=== PATIENT | male | born 1935 | race Caucasian/White ===

== ENCOUNTER 2018-06-20 11:00 | Outpatient (RCR) ==
--- NOTE | 2018-06-14 15:05 | RS.OPPTEV2 ---
Date of Note: 06/14/18 Visit #: 1 Number of visits approved by Insurance: n/a Date of Evaluation: 06/14/18 Payer Source: MEDICARE Date of Onset/Injury/Change in Status: 05/12/18 Surgery Performed?: No Treatment Diagnosis: Low Back Pain History of Condition/Mechanism of Injury:: pt reports that 3-4 wks ago he lifted a heavy box and hurt his back. Reports MD has given him a steroid shot, steroid pack as well as gabapentin. pt states steroid shot helped for 2-3 days, and he couldn't tolerate the gabapentin it made him sleepy. Prior Level of Function.....Patient was independent with: ADL's, Self Care, Ambulation/Mobility, Community Integration/Access Functional Limitations: Standing, Bending, Ambulation, Community Access/ Integration Current Subjective/complaints:: pt reports he is having radiating, burning, sharp pain in RLE. Reports that he tried ice earlier and it did not seem to help. Treatment Side (optional): Right *Precautions: n/a Medical History Medical History: Hypertension, Arthritis Surgical History: CABG Surgical History Comments:: L knee surgery, Smoking Status: Current some day smoker Hx Home Medications: aspirin, coenzyme Q10, eliquis, enalapril, furosemide, metoprolol tartrate, rosuvastatin, triamterene-hydrochlorothiazide, Patient's Goals: decrease pain in low back Pain Assessment - Pain Description Pain Location: R lumbosacral area radiating into RLE Pain Description: Burning, Sharp, Aching Current Pain Intensity: 6 Worst Pain Intensity: 9 Functional Outcome Measure Oswestry LBP: 30 - G Codes & Severity Modifier G Codes & Modifier: n/a Source of G Code score: n/a Observation - Observation Inspection: pt with hamstring tightness, piriformis tightness L worse than R. Posture: Forward Head, Rounded Shoulders, Increased Thoracic Kyphosis, Decreased Lumbar Lordosis Handedness: Right Gait - Gait Pattern Gait Comments: pt amb with flexed posture General Range of Motion: BUE WFL's. BLE WFL's Muscle Strength: BUE 5/5. LLE 5/5. RLE hip flex 4+/5 with pain, knee flex/ext 4+/5, ankle DF/PF 5/5 - ROM Lumbar Flexion: Hand reach to patellae Sidebending to Left: Reach to Lateral Joint Line Sidebending to Right: Reach to Lateral Joint Line Lumbar Spine ROM Limitations: Soft Tissue Tightness, Muscle Weakness, Pain - Strength Trunk Extension: 4 Good Trunk Flexion: 3- Fair- Trunk Lateral Flexion: 3 Fair - Special Tests MIGUEL Test: Negative Left, Negative Right SLR Test: Positive Right Palpation Palpation Findings: Tenderness, Muscle Guarding Comments:: tenderness noted at R SI joint, muscle guarding on the R lumbosacral area Sensation - Sensation Right Upper Extremity: Intact/Normal Left Upper Extremity: Intact/Normal Right Lower Extremity: Impaired Left Lower Extremity: Intact/Normal Sensation Description: (n/t and burning/pain into RLE post thigh and ant barrera) Balance - Sitting Balance Static Sitting Balance: Normal Dynamic Sitting Balance: Normal - Standing Balance Static Standing Balance: Normal Dynamic Standing Balance: Normal - Treatment Modality: Electrical Stim Unattended Parameters/Method Applied: IFC x 20 mins at 12ma Treatment Area: R lumbosacral area Patient Position: Left Sidelying - Heat/Cryotherapy Treatment: Hot Pack Comments:: lumbosacral area Interventions - Exercise/Activities/Manual Therapy Exercises/Activities: pt performed BLE hamstring stretches, piriformis stretches , prone lying Manual Therapy: n/a HOME EXERCISE PROGRAM: pt given written HEP to include prone lying, standing lumbar ext, hamstring stretch, piriformis stretch - Charges Timed Code Treatment Minutes: 48 Total Treatment Time: 61 Procedures billed for this date of service:: eval low, estim, HP EVALUATION COMPLEXITY LEVEL EVALUATION COMPLEXITY LEVEL: HISTORY: Low (OA, HTN, LBP), EXAM OF BODY SYSTEMS: Medium, CLINICAL PRESENTATION: Low, CLINICAL DECISION MAKING: Low Assessment Assessment: pt presents with LBP radiating into RLE. pt with decreased strength , as well as muscle tightness B hamstring and piriformis L worse than R. Feel pt would benefit from skilled PT for therex for strengthening, stretching as well as modalities to decrease pain and inflammation. Patient Education: Home Exercise Program, Education of Plan of Care Rehab Potential: Good Short Term Goals Goal #1: pt independent with initial HEP Goal to be met by: 06/28/18 Goal #2: Rate pain <6/10 with activity Goal to be met by: 06/28/18 Goal #3: Improve flexibility L hamstring and piriformis equal to R Goal to be met by: 06/28/18 Goal #4: pt report radiating pain is no longer constant. Goal to be met by: 06/28/18 Larry Operator Goals Goal #1: Report increased ability to return to normal daily activities w less pain Goal to be met by: 07/12/18 Goal #2: Improve B LE hamstring and piriformis flexibility Goal to be met by: 07/12/18 Goal #3: pt with no reports of radicular pain in RLE Goal to be met by: 07/12/18 Plan - Treatment to be Provided Procedures: Therapeutic Exercises, Therapeutic Activity, Manual Therapy, Massage , Patient Education Modalities: Electrical Stimulation, Ultrasound/Phonophoresis, Cryotherapy, Hot Packs - Treatment Plan Frequency: 2 X week Duration: 4 weeks Dates of Larry Operator Goals: 07/12/18 Expiration date of current Insurance Approval:: n/a - Treatment Code (1) Low back pain Code(s): M54.5 - LOW BACK PAIN Qualifiers: Chronicity: chronic Back pain laterality: right Sciatica presence: with sciatica Sciatica laterality: sciatica of right side Qualified Code(s): M54.41 - Lumbago with sciatica, right side; G89.29 - Other chronic pain (2) Muscle tightness Code(s): M62.89 - OTHER SPECIFIED DISORDERS OF MUSCLE (3) Low back pain radiating to right lower extremity Code(s): M54.5 - LOW BACK PAIN
--- NOTE | 2018-06-17 08:15 | RS.CXNS ---
Date of scheduled appointment: 06/17/18 Type: Cancel Reason for Cancel/NS: Called ,cancelled due to in the family.
--- NOTE | 2018-06-24 10:55 | RS.OPPTDN ---
Subjective Date of Note: 06/20/18 Visit #: 2 Number of visits approved by Insurance: NA Date of Evaluation: 06/14/18 Payer Source: MEDICARE Treatment Diagnosis: Low Back Pain Current Subjective/complaints:: Patient reports the back feels about the same as the last visit ( eval.) *Precautions: n/a Pain Assessment - Pain Description Pain Location: lumbar / R hip Pain Description: Radiating, Dull, Aching Current Pain Intensity: 6/10 - Treatment Modality: Electrical Stim Unattended Parameters/Method Applied: 20 mins. IFC @ 14-15 ma to lumbar Patient Position: Left Sidelying - Heat/Cryotherapy Treatment: Hot Pack (concurrent with e-stim) Interventions - Exercise/Activities/Manual Therapy Exercises/Activities: pt performed pelvic tilts,SKTC ,DKTC ,hamstring stretches, piriformis stretches Total minutes of Exercise: 20 Manual Therapy: n/a Total minutes of Manual Therapy: 0 HOME EXERCISE PROGRAM: pt given written HEP to include prone lying, standing lumbar ext, hamstring stretch, piriformis stretch - Charges Timed Code Treatment Minutes: 20 Total Treatment Time: 40 Procedures billed for this date of service:: hp,e-stim,ex 1 Assessment: Patient has moderate tightness in the R hip and also bilateral hamstrings.He is guarded with re-positionind himself from side-lying to supine.We discussed to also continue prone position if it gives relief.He reports slight decrease after session today. Patient Education: Education of diagnosis, Body/Joint mechanics, Home Exercise Program, Home Safety, Activity Modification, Education of Plan of Care Patient demonstrates compliance with HEP?: Yes Short Term Goals Goal #1: pt independent with initial HEP Goal to be met by: 06/28/18 Progress towards Goal:: Progressing Goal #2: Rate pain <6/10 with activity Goal to be met by: 06/28/18 Goal #3: Improve flexibility L hamstring and piriformis equal to R Goal to be met by: 06/28/18 Goal #4: pt report radiating pain is no longer constant. Goal to be met by: 06/28/18 Senior Care Goals Goal #1: Report increased ability to return to normal daily activities w less pain Goal to be met by: 07/12/18 Goal #2: Improve B LE hamstring and piriformis flexibility Goal to be met by: 07/12/18 Goal #3: pt with no reports of radicular pain in RLE Goal to be met by: 07/12/18 Plan Dates of Senior Care Goals: 07/12/18 Expiration date of current Insurance Approval:: NA PLAN: Cont skilled PT to reduce/eliminate lumbar and sciatic pain.
== END 2018-06-20 23:59 ==
DX: M54.5 Low back pain (principal)

== ENCOUNTER 2018-07-12 14:00 | Outpatient (RCR) ==
--- NOTE | 2018-06-25 15:39 | RS.OPPTDN ---
Subjective Date of Note: 06/25/18 Visit #: 3 Number of visits approved by Insurance: NA Date of Evaluation: 06/14/18 Payer Source: MEDICARE Treatment Diagnosis: Low Back Pain Current Subjective/complaints:: Patient reports the pain is a litle less ,as compared to last week. *Precautions: n/a Pain Assessment - Pain Description Current Pain Intensity: 3-4 /10 Other Comments regarding Pain:: He reports the morning pain is worse ,feels better as he is up moving more as the day progresses. - Treatment Modality: Electrical Stim Unattended Parameters/Method Applied: 20 mins. IFC to lumbar,@ 15 ma. Patient Position: Left Sidelying - Heat/Cryotherapy Treatment: Hot Pack (concurrent with e-stim) Interventions - Exercise/Activities/Manual Therapy Exercises/Activities: 35 mins. of SKTC ,DKTC,90/90 hams. stretches,LTR,in hooklying.R piriformis stretches.SI muscle energy of resisted L hip ext/R hip flexion. Total minutes of Exercise: 35 Manual Therapy: n/a Total minutes of Manual Therapy: 0 HOME EXERCISE PROGRAM: pt given written HEP to include prone lying, standing lumbar ext, hamstring stretch, piriformis stretch - Charges Timed Code Treatment Minutes: 35 Total Treatment Time: 55 Procedures billed for this date of service:: hp,e-stim,ex 2 Assessment: Progressing ,reports relief from the R sciatica after piriformis stretches,but the general pain returns with initial standing.He has better standing posture after PT session.The muscle energy dereases the leg length discrepancy.He initially presented with the R LE shorter than L when supine .He is attentive and motivated to improve. Patient Education: Education of diagnosis, Body/Joint mechanics, Home Exercise Program, Home Safety, Activity Modification, Education of Plan of Care Patient demonstrates compliance with HEP?: Yes Short Term Goals Goal #1: pt independent with initial HEP Goal to be met by: 06/28/18 Progress towards Goal:: Progressing Goal #2: Rate pain <6/10 with activity Goal to be met by: 06/28/18 Progress towards Goal:: Progressing Goal #3: Improve flexibility L hamstring and piriformis equal to R Goal to be met by: 06/28/18 Progress towards Goal:: Progressing Goal #4: pt report radiating pain is no longer constant. Goal to be met by: 06/28/18 Lab Assistant Goals Goal #1: Report increased ability to return to normal daily activities w less pain Goal to be met by: 07/12/18 Progress towards goal: Progressing Goal #2: Improve B LE hamstring and piriformis flexibility Goal to be met by: 07/12/18 Goal #3: pt with no reports of radicular pain in RLE Goal to be met by: 07/12/18 Plan Dates of Lab Assistant Goals: 07/12/18 Expiration date of current Insurance Approval:: NA PLAN: Cont. skilled PT to eliminate /reduce LBP.
--- NOTE | 2018-06-28 12:02 | RS.OPPTDN ---
Subjective Date of Note: 06/28/18 Visit #: 4 Number of visits approved by Insurance: NA Date of Evaluation: 06/14/18 Payer Source: MEDICARE Treatment Diagnosis: Low Back Pain Current Subjective/complaints:: Patient reports he still has the discomfort in the R buttocks area today,has slioghtly antalgic gait present. *Precautions: n/a Pain Assessment - Pain Description Pain Location: lumbar /R hip Pain Description: Radiating, Dull, Aching Current Pain Intensity: 3-4/10 - Heat/Cryotherapy Treatment: Hot Pack (20 mins. prior to manual therapy) Interventions - Exercise/Activities/Manual Therapy Exercises/Activities: HEP review while receiving manual therapy. Total minutes of Exercise: 0 Manual Therapy: 25 mins. deep tisue mobs.to R gluteals,origin of R hamstrings. Total minutes of Manual Therapy: 25 HOME EXERCISE PROGRAM: pt given written HEP to include prone lying, standing lumbar ext, hamstring stretch, piriformis stretch - Charges Timed Code Treatment Minutes: 25 Total Treatment Time: 45 Procedures billed for this date of service:: hp,manual 2 Assessment: Patient reports the pain is about the same as before treatment today ,but he generally feels better as the walking progresses.He is compliant to doing stretches at home ,motivated to improve .We discussed to do the stretches in a pain free ROM ,avoid sharp pain or any activity that causes sciatica. Patient Education: Education of diagnosis, Body/Joint mechanics, Home Exercise Program, Home Safety, Activity Modification, Education of Plan of Care Patient demonstrates compliance with HEP?: Yes Short Term Goals Goal #1: pt independent with initial HEP Goal to be met by: 06/28/18 Progress towards Goal:: Progressing Goal #2: Rate pain <6/10 with activity Goal to be met by: 06/28/18 (3-4/10) Progress towards Goal:: Progressing Goal #3: Improve flexibility L hamstring and piriformis equal to R Goal to be met by: 06/28/18 Progress towards Goal:: Progressing Goal #4: pt report radiating pain is no longer constant. Goal to be met by: 06/28/18 Progress towards Goal:: Progressing Skilled Nursing Goals Goal #1: Report increased ability to return to normal daily activities w less pain Goal to be met by: 07/12/18 Progress towards goal: Progressing Goal #2: Improve B LE hamstring and piriformis flexibility Goal to be met by: 07/12/18 Goal #3: pt with no reports of radicular pain in RLE Goal to be met by: 07/12/18 Plan Dates of Skilled Nursing Goals: 07/12/18 Expiration date of current Insurance Approval:: NA PLAN: Cont. skilled PT to reduce /eliminate sciatica and back pain ,return to PLOF.
--- NOTE | 2018-07-01 15:04 | RS.OPPTDN ---
Subjective Date of Note: 07/01/18 Visit #: 5 Number of visits approved by Insurance: NA Date of Evaluation: 06/14/18 Payer Source: MEDICARE Treatment Diagnosis: Low Back Pain Current Subjective/complaints:: Reports the pain is slightly less today than last visit.He occasionally can sleep pain free ,but the pain is generally present most of the time. *Precautions: n/a Pain Assessment - Pain Description Pain Location: R lumbar and R buttocks into the posterior thigh Pain Description: Radiating, Dull, Aching, Chronic Current Pain Intensity: 3/10 - Treatment Modality: Ultrasound Parameters/Method Applied: 10 mins. @ 1.5 w/cm2 ,continuous mode to R hip area. - Heat/Cryotherapy Treatment: Hot Pack (20 mins. prior to US and exercises) Interventions - Exercise/Activities/Manual Therapy Exercises/Activities: 25 mins. of SKTC,DKTC ,piriformis,hamstring stretches,LTR in hooklying ,intermittent manual distraction to lumbar spine. Total minutes of Exercise: 25 Manual Therapy: NA Total minutes of Manual Therapy: 0 HOME EXERCISE PROGRAM: pt given written HEP to include prone lying, standing lumbar ext, hamstring stretch, piriformis stretch - Charges Timed Code Treatment Minutes: 35 Total Treatment Time: 55 Procedures billed for this date of service:: hp,US,ex 2 Assessment: Patient reports he has no pain with initial standing after being supine ,stands more erect.He has increased extensibility in the IT band and piriformis,but very firm end feel with no change in the hamstrings bilaterally. Patient Education: Education of diagnosis, Body/Joint mechanics, Home Exercise Program, Home Safety, Activity Modification, Education of Plan of Care Patient demonstrates compliance with HEP?: Yes Short Term Goals Goal #1: pt independent with initial HEP Goal to be met by: 06/28/18 Progress towards Goal:: Progressing Goal #2: Rate pain <6/10 with activity Goal to be met by: 06/28/18 (3/10 today) Progress towards Goal:: Progressing Comments:: Patient comments," slightly less than 3 at times ". Goal #3: Improve flexibility L hamstring and piriformis equal to R Goal to be met by: 06/28/18 Progress towards Goal:: Partially Met (Piriformis improving ,but no change in hamstrings) Goal #4: pt report radiating pain is no longer constant. Goal to be met by: 06/28/18 Progress towards Goal:: Progressing [facility] Goals Goal #1: Report increased ability to return to normal daily activities w less pain Goal to be met by: 07/12/18 Progress towards goal: Progressing Goal #2: Improve B LE hamstring and piriformis flexibility Goal to be met by: 07/12/18 Goal #3: pt with no reports of radicular pain in RLE Goal to be met by: 07/12/18 Plan Dates of [facility] Goals: 07/12/18 Expiration date of current Insurance Approval:: NA PLAN: Cont. skilled PT to reduce /eliminate sciatic pain.
--- NOTE | 2018-07-03 08:11 | RS.CXNS ---
Date of scheduled appointment: 07/03/18 Type: Cancel (Called yesterday ,has had skin cancer removed from his face, requesting to hold therapy .We will contact patient within the next week.)
--- NOTE | 2018-07-11 15:07 | RS.OPPTDN ---
Subjective Date of Note: 07/11/18 Visit #: 6 Number of visits approved by Insurance: na Date of Evaluation: 06/14/18 Payer Source: MEDICARE Treatment Diagnosis: Low Back Pain Current Subjective/complaints:: Patient reports the back feels better overall throughout the day,has some soreness in the back of the R thigh. *Precautions: n/a Pain Assessment - Pain Description Pain Location: lumbar/R hip and thigh Pain Description: Dull, Aching Current Pain Intensity: 3/10 - Treatment Modality: Ultrasound Parameters/Method Applied: 10 mins. , continuous mode @ 1.5 w/cm 2 to R lumbar and hip Patient Position: Left Sidelying - Heat/Cryotherapy Treatment: Hot Pack (20 mins.prior to US and exercises) Interventions - Exercise/Activities/Manual Therapy Exercises/Activities: 20 mins. of SKTC,DKTC ,piriformis,hamstring stretches,LTR in hooklying. Total minutes of Exercise: 20 Manual Therapy: NA Total minutes of Manual Therapy: 0 HOME EXERCISE PROGRAM: pt given written HEP to include prone lying, standing lumbar ext, hamstring stretch, piriformis stretch - Charges Timed Code Treatment Minutes: 30 Total Treatment Time: 50 Procedures billed for this date of service:: hp,US,ex 1 Assessment: Patient has decreased frequency and less intensity fo lumbar pain.The posterior R thigh is sore,but he feels this is possibly due to stretching the hamstrings.He has good understanding of HEP ,gives good return demo .We discussed the D/C plan after the next session. Patient Education: Education of diagnosis, Body/Joint mechanics, Home Exercise Program, Home Safety, Activity Modification, Education of Plan of Care Patient demonstrates compliance with HEP?: Yes Short Term Goals Goal #1: pt independent with initial HEP Goal to be met by: 06/28/18 Progress towards Goal:: Progressing Goal #2: Rate pain <6/10 with activity Goal to be met by: 06/28/18 (3/10 today) Progress towards Goal:: Met Goal #3: Improve flexibility L hamstring and piriformis equal to R Goal to be met by: 06/28/18 Progress towards Goal:: Progressing (Piriformis improving ,but no change in hamstrings) Goal #4: pt report radiating pain is no longer constant. Goal to be met by: 06/28/18 Progress towards Goal:: Met Customer Logistics Manager Goals Goal #1: Report increased ability to return to normal daily activities w less pain Goal to be met by: 07/12/18 Progress towards goal: Progressing Goal #2: Improve B LE hamstring and piriformis flexibility Goal to be met by: 07/12/18 Goal #3: pt with no reports of radicular pain in RLE Goal to be met by: 07/12/18 Progress towards goal: Progressing Comments: still intermittent Plan Dates of Customer Logistics Manager Goals: 07/12/18 Expiration date of current Insurance Approval:: na PLAN: Cont skilled PT ,initiate D/C after one more session as he is approaching rehab potential
--- NOTE | 2018-07-12 15:31 | RS.OPPTDC ---
Date of Discharge: 07/12/18 Date of Evaluation: 06/14/18 Number of Visits: 7 Treatment Diagnosis: Low Back Pain Current Level of Function: pt is independent with HEP. pt rates pain 2-3/10 LBP with no reports of radicular symptoms. pt with improved flexibility of piriformis, no real change in hamstring. Current Complaints/Gains: pt is pleased with progress, feels like he is comfortable with HEP. Feels he is ready for D/C Pain Assessment - Pain Description Pain Location: LBP Current Pain Intensity: 2-3/10 Functional Outcome Measure Oswestry LBP: 15 - G Codes & Severity Modifier G Codes & Modifier: n/a Source of G Code score: n/a Observation - Observation Posture: Forward Head, Rounded Shoulders Gait - Gait Pattern General Gait Pattern Observation: No Deviations/Normal Interventions - Exercise/Activities/Manual Therapy Exercises/Activities: n/a Manual Therapy: NA HOME EXERCISE PROGRAM: pt given written HEP to include prone lying, standing lumbar ext, hamstring stretch, piriformis stretch - Charges Timed Code Treatment Minutes: n/a Total Treatment Time: n/a Procedures billed for this date of service:: n/a Assessment Assessment: pt made significant improvement with decreased pain, improved flexibility. pt has met STG 1, 2, 4 and LTG 1, 3. pt continues with hamstring tightness. pt has been able to return to normal daily activities. Patient Education: Home Exercise Program, Education of Plan of Care Rehab Potential: Good Short Term Goals Goal #1: pt independent with initial HEP Goal to be met by: 06/28/18 Progress towards Goal:: Met Goal #2: Rate pain <6/10 with activity Goal to be met by: 06/28/18 (3/10 today) Progress towards Goal:: Met Goal #3: Improve flexibility L hamstring and piriformis equal to R Goal to be met by: 06/28/18 Progress towards Goal:: Progressing (Piriformis improving ,but no change in hamstrings) Goal #4: pt report radiating pain is no longer constant. Goal to be met by: 06/28/18 Progress towards Goal:: Met Quarry Equipment Operator Goals Goal #1: Report increased ability to return to normal daily activities w less pain Goal to be met by: 07/12/18 Progress towards goal: Met Goal #2: Improve B LE hamstring and piriformis flexibility Goal to be met by: 07/12/18 Progress towards goal: Partially Met Goal #3: pt with no reports of radicular pain in RLE Goal to be met by: 07/12/18 Progress towards goal: Met Plan Comments: Most goals met, pt feels he does not need further skilled PT .
== END 2018-07-18 23:59 ==
DX: M54.5 Low back pain (principal)